=== PATIENT | female | born 1945 | race Caucasian/White ===

== ENCOUNTER 2018-01-02 03:27 | Inpatient (IN) | payer MEDICARE ==
[~2018-01-02] VITALS: Ht 158.8 cm; Wt 49.4 kg
[2018-01-02 06:40] VITALS: BP 137/67
--- NOTE | 2018-01-02 06:50 | NUR ---
RN NOTES RECEIVED PATIENT FROM [facility], ACCOMPANIED BY 2 SPANISH LINGUIST, IN A GURNEY. PATIENT ABLE TO AMBULATE ADLIB FROM GURNEY TO BED, NO GAIT ABNORMALITY. PATIENT IS ALERT AND ORIENTED X4, DENIES ANY PAIN AND DISCOMFORT. PATIENT CONNECTED TO TELE AND SHOWING NSR, HR IN THE 70s. VS STABLE. SPOKE WITH GOLDIE ALANIZ, REGARDING THE PATIENT'S ADMISSION. PER GOLDIE ALANIZ. PATIENT IS TO BE ADMITTED UNDER TELEMETRY WITH DX OF NEW ONSET AFIB WITH CARDIAC CONSULT IN AM. WILL ENDORSE ACCORDINGLY. PATIENT ORIENTED TO UNIT PROTOCOLS. NEEDS ANTICIPATED AND MET AT THIS TIME. CALL LIGHT IN REACH.
[2018-01-02 08:00] VITALS: BP 105/56
--- NOTE | 2018-01-02 08:00 | NUR ---
GEE RN AM NOTES RECEIVED PT IN BED ALERT,AWAKE AND VERBALLY RESPONSIVE.AMBULATES AD RYLEE WITH BRP.SKIN INTACT.DENIES ANY DISTRESS OR DISCOMFORT.WITH TELE ON SR 78.NOTIFIED DR ALVARENGA OF THE NEW ADMISSION -AWAITING FOR ADMITTING ORDERS.CALL LIGHT PLACED WITHIN REACH.
[2018-01-02] MEDS ORDERED: ASPI-1169 PO (08:07)
[2018-01-02] MEDS ORDERED: MULT-447 PO (08:07)
[2018-01-02 12:00] VITALS: BP 88/41
[2018-01-02] MEDS ORDERED: ACETAMINOPHEN 325 MG TABLET PO PRN (14:30)
[2018-01-02] MEDS ORDERED: Z GUARD REMEDY 2 OZ OINT TP PRN (14:30)
[2018-01-02] MEDS ORDERED: ZOLPIDEM TARTRATE 5 MG TABLET PO PRN (14:30)
[2018-01-02] MEDS ORDERED: MAG HYDROX/AL HYDROX/SIMETH 30 ML UDC PO PRN (14:30)
[2018-01-02] MEDS ORDERED: HYDROCODONE/APAP 5/325MG 1 EACH TABLET PO PRN (14:30)
[2018-01-02] MEDS ORDERED: ONDANSETRON HCL/PF 4 MG/2 ML VIAL IVP PRN (14:30)
[2018-01-02] MEDS ORDERED: MAGNESIUM HYDROXIDE 30 ML UDC PO PRN (14:30)
[2018-01-02 15:55] LABS: CALCIUM, SERUM 8.6 mg/dL (8.5-10.1); CARBON DIOXIDE 28 mmol/L (21-32); CHLORIDE 105 mmol/L (98-107); CREATININE 0.7 mg/dL (0.6-1.3); GLUCOSE 96 mg/dL (74-106); POTASSIUM 4.2 mmol/L (3.5-5.1); SODIUM SERUM 139 mmol/L (136-145); UREA NITROGEN, BLOOD 17 mg/dL (7-18)
[2018-01-02 16:00] VITALS: BP_SYST 95; BP_DIAS 40; BP_DIAS 50
--- NOTE | 2018-01-02 18:00 | NUR ---
PT RESTING IN BED DENYING ANY PAIN OR DISTRESS.FAMILY AT BEDSIDE.ENCOURAGED FLUIDS.CALL LIGHT PLACED WITHIN REACH.
[2018-01-02 18:31] LABS: BASOPHILS # (AUTO) 0.1 /CMM (0.0-0.2); BASOPHILS % (AUTO) 0.6 % (0.0-2.0); EOSINOPHILS # (AUTO) 0.2 /CMM (0.0-0.7); EOSINOPHILS % (AUTO) 2.5 % (0.0-6.0); HEMATOCRIT 37 % (33-45); HEMOGLOBIN 12.3 g/dL (11.5-14.8); LYMPHOCYTES # (AUTO) 2.7 /CMM (0.8-4.8); LYMPHOCYTES % (AUTO) 32.3 % (20.0-44.0); MEAN CORPUSCULAR HEMOGLOBIN 29 PG (26.0-33.0); MEAN CORPUSCULAR HGB CONC 33 g/dl (31.0-36.0); MEAN CORPUSCULAR VOLUME 86 fL (82-100); MONOCYTES # (AUTO) 0.8 /CMM (0.1-1.30); MONOCYTES % (AUTO) 9.1 % (2.0-12.0); NEUTROPHILS # (AUTO) 4.7 /CMM (1.8-8.9); NEUTROPHILS % (AUTO) 55.5 % (43.0-81.0); PLATELET COUNT (AUTO) 244 /CMM (150-450); RDW COEFFICIENT OF VARIATION 15.8 (11.5-15.0); RED BLOOD CELL COUNT(AUTO) 4.26 MIL/uL (4.0-5.2); WHITE BLOOD COUNT (AUTO) 8.4 K/uL (4.3-11.0)
--- NOTE | 2018-01-02 19:15 | NUR ---
RN OPENING NOTE PATIENT IN BED, AWAKE, NO SOB NOTED, ALERT AND ORIENTED X 4, BREATHING EVEN AND UNLABORED. DENIES CHEST PAIN AT THIS TIME. ALL PATIENT'S NEEDS ATTENDED TO AT THIS TIME. FAMILY AT BEDSIDE. WILL CONTINUE TO MONITOR.
[2018-01-02] MEDS ORDERED: IV NS 0.9% 1,000 ML BAG IV ONE (19:30)
[2018-01-02 20:00] VITALS: BP 92/51
[2018-01-02 20:49] VITALS: BP 109/83
[2018-01-02] MEDS ORDERED: ENOXAPARIN SODIUM 40 MG/0.4 ML DISP.SYRIN SQ SCH (21:00)
[2018-01-03] VITALS: BP 103/51
[2018-01-03 04:00] VITALS: BP 112/61
[2018-01-03 04:12] LABS: APPEARANCE,URINE CLEAR (CLEAR); BILIRUBIN,URINE NEGATIVE (NEGATIVE); BLOOD, URINE NEGATIVE Ery/uL (NEGATIVE); COLOR,URINE YELLOW (YELLOW); KETONES,URINE NEGATIVE (NEGATIVE); LEUKOCYTE ESTERASE ,URINE NEGATIVE (NEGATIVE); NITRITE, URINE NEGATIVE (NEGATIVE); PROTEIN,URINE NEGATIVE (NEGATIVE); UGLUCOSE NEGATIVE (NEGATIVE); UROBILINOGEN,URINE 0.2 EU/dL (0.2)
--- NOTE | 2018-01-03 06:25 | NUR ---
RN CLOSING NOTES PATIENT IN BED, ASLEEP BUT EASILY AROUSABLE, A&O X 4, NOTED WITH NO SOB, IN NO ACUTE DISTRESS AT THIS TIME. WILL ENDORSE TO AM SHIFT NURSE FOR CONTINUITY OF CARE.
[2018-01-03 06:33] LABS: BASOPHILS % (AUTO) 0.6 % (0.0-2.0); EOSINOPHILS # (AUTO) 0.3 /CMM (0.0-0.7); EOSINOPHILS % (AUTO) 3.6 % (0.0-6.0); HEMATOCRIT 36 % (33-45); HEMOGLOBIN 12.1 g/dL (11.5-14.8); LYMPHOCYTES # (AUTO) 2.9 /CMM (0.8-4.8); LYMPHOCYTES % (AUTO) 37.1 % (20.0-44.0); MEAN CORPUSCULAR HEMOGLOBIN 29 PG (26.0-33.0); MEAN CORPUSCULAR HGB CONC 34 g/dl (31.0-36.0); MEAN CORPUSCULAR VOLUME 87 fL (82-100); MONOCYTES # (AUTO) 0.7 /CMM (0.1-1.30); MONOCYTES % (AUTO) 8.7 % (2.0-12.0); NEUTROPHILS # (AUTO) 3.9 /CMM (1.8-8.9); PLATELET COUNT (AUTO) 221 /CMM (150-450); RDW COEFFICIENT OF VARIATION 15.5 (11.5-15.0); RED BLOOD CELL COUNT(AUTO) 4.11 MIL/uL (4.0-5.2); WHITE BLOOD COUNT (AUTO) 7.7 K/uL (4.3-11.0)
[2018-01-03 07:03] LABS: CALCIUM, SERUM 8.3 mg/dL (8.5-10.1); CARBON DIOXIDE 27 mmol/L (21-32); CHLORIDE 109 mmol/L (98-107); CREATININE 0.7 mg/dL (0.6-1.3); GLUCOSE 85 mg/dL (74-106); MAGNESIUM 1.9 mg/dL (1.8-2.4); PHOSPHORUS 3.2 mg/dL (2.5-4.9); POTASSIUM 3.7 mmol/L (3.5-5.1); SODIUM SERUM 144 mmol/L (136-145); UREA NITROGEN, BLOOD 11 mg/dL (7-18)
--- NOTE | 2018-01-03 07:41 | NUR ---
INTERIOR HORTICULTURIST NOTE: RECEIVED PATIENT IN BED, AWAKE, WATCHING TELEVISION, AND VERBALLY RESPONSIVE. HOB ELEVATED. RESPIRATION EVEN AND UNLABORED. DENIED PAIN AT THIS TIME. NOTED W/ (L) AC IV LINE W/ TRANSPARENT DRESSING INTACT. ON OCULAR CARE TECHNICIAN, SR=92. BED ALARM AND LOCKED AT ALL TIMES. CALL LIGHT WITHIN REACH.
[2018-01-03 08:00] VITALS: BP 114/70
[2018-01-03 08:34] LABS: CHOLESTEROL 178 mg/dL (<200); HDL CHOLESTEROL 78 mg/dL (40-60); LDL 89 mg/dL (0-99); TRIGLYCERIDES 88 mg/dL (30-150)
[2018-01-03 10:50] LABS: IRON, SERUM 68 ug/dl (50-175); TOTAL IRON BINDING CAPACITY 227 ug/dl (250-450)
[2018-01-03] MEDS: DRONEDARONE HYDROCHLORIDE 400 MG TABLET PO SCH ×2 (10:57→17:54)
[2018-01-03 11:06] LABS: FERRITIN 94 ng/mL (8-388)
[2018-01-03 11:24] LABS: TROPONIN I < 0.017 ng/mL (0.00-0.056)
--- NOTE | 2018-01-03 11:29 | NUR ---
STORE STANDARDS ASSOCIATE NOTE: CALLED AND SPOKE W/ DR. THOMPSON RE: THE PATIENT'S PRESCRIPTION FOR XARELTO AND LOVENOX. CLARIFIED W/ HIM WHICH ONE HE WANTED TO CONTINUE. ORDERED TO CONTINUE XARELTO AND DC LOVENOX. ORDER CARRIED OUT. PATIENT MADE AWARE.
[2018-01-03 12:00] VITALS: BP 102/59
[2018-01-03 16:00] VITALS: BP_SYST 114; BP_SYST 117; BP_DIAS 60; BP_DIAS 70
[2018-01-03] MEDS ORDERED: RIVAROXABAN 10 MG TABLET PO SCH (17:00)
[2018-01-03 20:00] VITALS: BP 114/56
--- NOTE | 2018-01-03 20:06 | NUR ---
[employer]GNOS CONSULTANT NOTE: PATIENT REMAINED SEATED IN BED, AWAKE, WATCHING TELEVISION, AND VERBALLY RESPONSIVE. HOB ELEVATED. RESPIRATION EVEN AND UNLABORED. DENIED PAIN. PATIENT REFUSED TO HAVE ANOTHER IV LINE AT THIS TIME. ON VIDEO PRODUCTION COORDINATOR, SR=90. BED ALARM AND LOCKED AT ALL TIMES. CALL LIGHT WITHIN REACH. REPORT GIVEN TO PM SHIFT FOR CONTINUITY OF CARE AND AWARE OF THE PATIENT'S REFUSAL TO HAVE ANOTHER IV LINE. SEEN BY DR. ALVARENGA TODAY AND PER MD, PT IS POSSIBLE DC FOR TOMORROW.
[2018-01-04] VITALS: BP 124/77
[2018-01-04 04:00] VITALS: BP 119/74
[2018-01-04 07:36] LABS: BASOPHILS % (AUTO) 0.6 % (0.0-2.0); EOSINOPHILS # (AUTO) 0.3 /CMM (0.0-0.7); EOSINOPHILS % (AUTO) 4.6 % (0.0-6.0); HEMATOCRIT 37 % (33-45); HEMOGLOBIN 12.4 g/dL (11.5-14.8); LYMPHOCYTES # (AUTO) 2.3 /CMM (0.8-4.8); LYMPHOCYTES % (AUTO) 32.4 % (20.0-44.0); MEAN CORPUSCULAR HEMOGLOBIN 30 PG (26.0-33.0); MEAN CORPUSCULAR HGB CONC 34 g/dl (31.0-36.0); MEAN CORPUSCULAR VOLUME 87 fL (82-100); MONOCYTES # (AUTO) 0.7 /CMM (0.1-1.30); MONOCYTES % (AUTO) 9.3 % (2.0-12.0); NEUTROPHILS # (AUTO) 3.8 /CMM (1.8-8.9); NEUTROPHILS % (AUTO) 53.1 % (43.0-81.0); PLATELET COUNT (AUTO) 236 /CMM (150-450); RDW COEFFICIENT OF VARIATION 15.6 (11.5-15.0); WHITE BLOOD COUNT (AUTO) 7.2 K/uL (4.3-11.0)
--- NOTE | 2018-01-04 07:45 | NUR ---
BUSINESS OFFICE ASSOCIATE NOTE: RECEIVED PATIENT IN BED, AWAKE, ALERT AND VERBALLY RESPONSIVE. HOB ELEVATED. RESPIRATION EVEN AND UNLABORED. DENIED PAIN AT THIS TIME. ON ELECTRIC TRUCKER, SR=71. BED ALARM AND LOCKED AT ALL TIMES. CALL LIGHT WITHIN REACH.
[2018-01-04 08:00] VITALS: BP 104/72
[2018-01-04 08:04] LABS: CALCIUM, SERUM 8.7 mg/dL (8.5-10.1); CARBON DIOXIDE 31 mmol/L (21-32); CHLORIDE 107 mmol/L (98-107); CREATININE 0.8 mg/dL (0.6-1.3); GLUCOSE 84 mg/dL (74-106); MAGNESIUM 2.1 mg/dL (1.8-2.4); PHOSPHORUS 3.5 mg/dL (2.5-4.9); SODIUM SERUM 143 mmol/L (136-145); UREA NITROGEN, BLOOD 11 mg/dL (7-18)
[2018-01-04] MEDS: DRONEDARONE HYDROCHLORIDE 400 MG TABLET PO SCH (09:01)
[2018-01-04] MEDS ORDERED: RIVA10TA PO (09:11)
--- NOTE | 2018-01-04 13:43 | NUR ---
RN M/S NOTE: PATIENT WAS DISCHARGE TO HOME AND WAS GIVEN DISCHARGE INSTRUCTIONS W/ HER SON, LUCAS CONROY PRESENT AT THE BEDSIDE. PATIENT WAS GIVEN THE PACKET FOR DISCHARGE INCLUDING HER PRESCRIPTION FOR XARELTO. EMPHASIZED TO HER THAT SHE NEEDED TO CALL THE OFFICE OF DR. CELESTE THOMPSON IN 1 WEEK FOR FOLLOW-UP APPOINTMENT. PATIENT VERBALIZED UNDERSTANDING. ALL BELONGINGS WERE RELEASED W/ THE PATIENT. SIGNED HER DISCHARGE INSTRUCTIONS. PATIENT WAS ON STABLE CONDITION UPON DISCHARGE. NO DIZZINESS. DENIED PAIN. AND NOTED W/ STEADY GAIT UPON WALKING OUT OF THE ROOM. WALKED W/ PATIENT UP IN THE MAIN LOBBY W/ HER SON.
== END 2018-01-04 13:30 | disposition home or self-care (01) | DRG 309 ==
LOC: TELE1 06:31
PROVIDERS: ADMIT Nurse Practitioner Acute Care; ATTEND Nurse Practitioner Acute Care
DX: I48.91 Unspecified atrial fibrillation (principal); D68.59 Other primary thrombophilia; I95.9 Hypotension, unspecified; J44.9 Chronic obstructive pulmonary disease, unspecified; D64.9 Anemia, unspecified; I70.0 Atherosclerosis of aorta; K21.9 Gastro-esophageal reflux disease without esophagitis; I48.92 Unspecified atrial flutter; Z79.82 Long term (current) use of aspirin; Z79.899 Other long term (current) drug therapy; F17.200 Nicotine dependence, unspecified, uncomplicated; Z79.01 Long term (current) use of anticoagulants; E78.5 Hyperlipidemia, unspecified; E61.1 Iron deficiency
CPT/HCPCS: 36415; 71045-TC; 80048-TC; 80061-TC; 81000-TC; 82306; 82728-TC; 83540-TC; 83605-TC; 83735-TC; 84100-TC; 84439-TC; 84443-TC; 84484-TC; 85025-TC; 87081-TC; 93307-TC; J7030

== ENCOUNTER 2018-01-15 06:52 | Outpatient (CLI) | payer MEDICARE ==
[~2018-01-15 06:52] MED LIST: ASPI-1169 PO; MULT-447 PO; RIVA10TA PO
[2018-01-15] MEDS ORDERED: REGADENOSON 0.4 MG/5 ML DISP.SYRIN IVP ONE (08:00)
== END 2018-01-15 23:59 | disposition home or self-care (01) ==
LOC: NM 06:52
PROVIDERS: ATTEND Internal Medicine Interventional Cardiology
DX: R07.89 Other chest pain (principal)
CPT/HCPCS: 78452; A9502; J2785